=== PATIENT | male | born 1965 | race Two or more races ===

== ENCOUNTER 2022-05-07 10:04 | Emergency (ER) | payer MEDICAID, SELFPAY ==
[2022-05-07 10:07] VITALS: BP 118/81; PULSE 104; RESP 18; TEMP 36.6; O2SAT 96; BMI 33.4
--- NOTE | 2022-05-07 11:01 | MHC.RECOVRN ---
Spoke with Karrie Godwin RN, at [facility] in [facility], [place] location. Phone number [phone]. Pt last received 90 mg methadone on 05/06/22 at 0802. Form sent to pharmacy, provider aware. Pt reports he will be staying with his mother in [place] since he was evicted from his apartment in [place]. Discussed local OTPs, pt would like to be connected to [facility].
--- NOTE | 2022-05-07 11:39 | HE.PHANOTE ---
Methadone verification form received, confirmed 90 mg with [facility] meth[facility], last dose was 05/06/22
[2022-05-07] MEDS: methADONE HCl 20 MG/2 ML ORAL.CONC 90 MG PO (11:47)
--- NOTE | 2022-05-07 12:44 | MHC.RECOVRN ---
Pts referral sent to [facility]. Spoke with Kirstin Rice, health program analyst, regarding pt transfer from [facility]. T/w was informed pt would need [facility] prior to initiating care at [facility]. Suzette De La Rosa met with pt to begin [facility] application, Suzette hopeful pt will be active today. Suzette will call pt with updates when application is processed. If pt is active today, pt instructed to present to [facility] tomorrow morning between 7-10AM. If pt is not active, pt instructed to return to [facility] ED for dose tomorrow. Pt provided with OTP location and contact information. Denies questions or concerns. Discussed with ED provider.
--- NOTE | 2022-05-07 12:52 | ED_ITS ---
HPI - General Adult General Chief complaint: General Medical Stated complaint: Medication Refill? 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 He reports he does not have any access to methadone and he cannot go back to [place]. He reports he did get his last dose yesterday. He reports that he did use a bundle of heroin last night. He denies any other recent drug usage. He denies any SI/HI/auditory visualizations thoughts of self-injury or any other complaints or concerns at this time. MD complaint: Requesting methadone dosing Onset (ago): day(s) (Today) Related Data Allergies Allergy/AdvReac Type Severity Reaction Status Date / Time No Known Allergies Allergy Verified 05/07/22 10:21 Review of Systems Review of Systems: Constitutional : No Weight loss, No Fever, No Chills, No Night Sweats, No Fatigue, No Malaise ENT/Mouth : No Hearing loss, No Ear Pain, No Nasal Congestion, No Sinus Pain, No Hoarseness, No sore throat, No Rhinorrhea, No Swallowing Difficulty Eyes: No Eye Pain, No Swelling, No Redness, No Foreign Body, No Discharge, No Vision Changes Cardiovascular : No Chest Pain, No SOB, No Dyspnea on Exertion, No Orthopnea, No Edema, No Palpitations Respiratory : No Cough, No Sputum, No Wheezing, No Smoke Exposure, No Dyspnea Gastrointestinal : No Nausea, No Vomiting, No Diarrhea, No Constipation, No abdominal Pain, No Hematochezia, No Melena Genitourinary : no irregular bleeding, No Dysuria, No Urinary Frequency, No Hematuria, No Urinary Incontinence, No Urgency, No Flank Pain, No Urinary Flow Changes, No Hesitancy Musculoskeletal : No joint pain, No Myalgias, No Joint Swelling Skin : No Skin Lesions, No rash Neuro : No Weakness, No Numbness, No Paresthesias, No Loss of Consciousness, No Dizziness, No Headache Psych : No Anxiety/Panic, No Depression, No SI/HI/AH/VH, No Social Issues, Heme/Lymph: No Bruising, No Bleeding,No Lymphadenopathy Endocrine : No Polyuria, No Polydipsia, No Temperature Intolerance Yes all other systems are reviewed and are negative [facility] Past Medical History Attestation statement: The following information was validated with the patient. Source: old records reviewed and nursing notes reviewed Social History Social History Advance Directives: No Advance Directives Information Provided: Yes Physical Exam ED Vital Signs: Vital Signs - 24 hr 05/07/22 10:07 Temperature 98 F Pulse Rate 104 H Respiratory Rate 18 Blood Pressure 118/81 Pulse Oximetry 96 Oxygen Delivery Method Room Air BMI result Body Mass Index 33.4 vital signs have been reviewed as normal and appeared to be correct. Blood pressure normal. Heart rate normal. Respiration rate normal. Temperature normal. Oxygen saturation normal. Appearance: Alert. Oriented X3. No acute distress. Head: Normal external exam. Normocephalic. Atraumatic. Eyes: PERRLA. EOMI. Conjunctiva and sclera normal. Eyelids normal. ENT: Pharynx normal. Uvula midline. Moist mucous membranes. No lesions/ulcerations or masses noted on the tongue. Normal voice. No trismus noted. No drooling noted. No muffled voice noted. Neck: Normal inspection. Neck supple. FROM. No adenopathy. Thyroid Normal. No tracheal deviation noted. No crepitus is noted. No meningeal signs. No neck mass noted. No signs of trauma noted. CVS: Normal heart rate and rhythm. Heart sound normal. Pulses normal throughout. No murmurs/rales/gallops. Respiratory: No respiratory distress. Painless inspiration. Breath sounds normal. No wheezes/rales/rhonchi noted. Chest nontender. No crepitus is noted. No signs of trauma noted. No accessory muscle usage noted or decreased air movement noted. No signs of trauma. Abdomen: Soft and nontender. Bowel sounds normal in all 4 quadrants. No distention noted. No organomegaly noted. No visible injury noted. Back: No CVA tenderness. Full range of motion noted. Nontender. No signs of trauma. Patient neuro intact bilaterally and distally on all 4 extremities. Patient's reflexes intact bilaterally and distally on all 4 extremities. No rashes/lesion/induration/fluctuance or signs of infection noted. Skin: Skin warm and dry. Normal skin color. Normal skin turgor. No rashes/lesions/lacerations noted. Extremities: No lower extremity edema. No calf tenderness is noted. Extremities exhibit normal range of motion and nontender. Neuro: Oriented X 3. No motor deficit. No sensory deficit. Reflexes normal. Normal steady gait. No focal neuro deficits noted. CN's II-XII intact bilaterally? Vascular: + radial pulses/+ 2 distal pedal pulses/+2 dorsalis pedis b/l. Normal cap refill. No cyanosis noted to upper extremity nails and lower extremity toes nails. Course Course Course Narrative: Patient requesting his methadone dosing was last dose yesterday [place]. Kathy rosas from recovery team confirmed this. He does not actually have [employer] and he will be residing here with his mother will not be going back to [place] therefore financial advisors were consulted as well and are trying to help the patient establish health insurance [facility] while he is living here [place]. We gave him his 90 mg of methadone today. If he cannot make establish insurance he will have to come back here for his methadone dosing until he establishes his health insurance. After that patient can go to [facility] once he establishes [facility] per Kathy Rosas the refinery operator vapor recovery unit/RN. Therefore at this time patient given 90 mg of methadone and he will have to come back tomorrow for repeat dosing. I gave him a few numbers to establish a PCP as well. Medications Administered Discontinued Medications Generic Name Dose Route Start Last Admin Trade Name Freq PRN Reason Stop Dose Admin Methadone HCl 90 mg 05/07/22 11:24 05/07/22 11:47 Methadone Hcl 20 Mg/2 Ml Oral.Conc PO 05/07/22 11:25 90 mg ONCE ONE Administration Medical Decision Making Consult Healthcare Provider Management of the patient was discussed with: Mechanical Detailer (Kathy rosas refinery operator vapor recovery unit RN) Discharge Plan Discharge Clinical Impression: Methadone maintenance therapy patient Patient Disposition: Home, Self-Care Instructions: Methadone (By mouth) Additional Instructions: We confirmed your methadone dose that you receive yesterday in [place] by your methadone clinic. We gave you 90 mg of p.o. methadone today. We are trying to help you establish a new clinic for your methadone dosing. Although it appears that you do not have insurance at this time and the financial officers are help you with this. If you do not get [facility] by tomorrow you can come here tomorrow to the emergency department around 11:00 to have your repeat 90 mg methadone dose. Bring this discharge paperwork with you so they know that you only need her methadone dose tomorrow. Return if any new or worsening symptoms. Referrals: [facility] [Provider Group] [facility] [Provider Group] [facility] [Provider Group] [facility] [Provider Group]
== END 2022-05-07 13:04 | disposition home or self-care (01) ==
PROVIDERS: Emergency Provider Student in an Organized Health Care Education/Training Program
DX: F11.20 Opioid dependence, uncomplicated (principal)
CPT/HCPCS: 99282; 99283

== ENCOUNTER 2023-10-25 15:21 | Emergency (ER) | payer MEDICAID, SELFPAY ==
[2023-10-25 15:42] VITALS: BP 126/83; PULSE 108; RESP 16; TEMP 36.6; O2SAT 95; BMI 32.7
--- NOTE | 2023-10-25 15:42 | ED.GENADULT ---
HPI - General Adult General Chief complaint: General Medical Stated complaint: med refill Time Seen by Provider: 10/25/23 18:43 Source: patient, RN notes reviewed and old records reviewed Mode of arrival: ambulatory Limitations: no limitations History of Present Illness ED Provider: Helen SUAREZ narrative: 57-year-old male presents for evaluation of ?medication refill. ? Patient has a history of depression. He reports he recently moved to this area from [place]. He reports that he is prescribed gabapentin 300 mg b.i.d. and Prozac 20 mg daily. He states that his last doses were 3 days ago. He reports that he is already begun trying to get in contact the primary doctor as well as psychiatric providers in the area but does not yet have them He has no complaints at this time and is just seeking medication refill Related Data Previous Rx's ?Medication ?Instructions ?Recorded fluoxetine 20 mg capsule (Prozac) 20 mg PO DAILY #30 caps 10/25/23 gabapentin 300 mg capsule 300 mg PO BID #60 caps 10/25/23 Allergies Allergy/AdvReac Type Severity Reaction Status Date / Time No Known Allergies Allergy Verified 10/25/23 15:47 Review of Systems Constitutional: Constitutional: Denies body ache(s), Denies chills and Denies headache(s) Eyes: Eyes: Denies blurry vision ENT: Denies vertigo and Denies headache(s) Cardiovascular: Cardiovascular: Denies chest pain and Denies dyspnea Respiratory: Respiratory: Denies cough and Denies dyspnea Gastrointestinal: Gastrointestinal: Denies abdominal pain, Denies nausea and Denies vomiting Musculoskeletal: Musculoskeletal: Denies back pain Integumentary/Breasts: Skin/Breast: Denies rash Neurologic: Denies vertigo and Denies headache(s) Psychiatric: Psychiatric: Denies anxiety, Denies depression and Denies suicidal ideation REPLACED BY [facility] Social History Social History Advance Directives: No Advance Directives Information Provided: No Do you have a plan to hurt others: No Plan Physical Exam ED Vital Signs: Vital Signs - 24 hr 10/25/23 15:42 10/25/23 17:44 Temperature 97.8 F 97.9 F Pulse Rate 108 H 79 Respiratory Rate 16 18 Blood Pressure 126/83 115/74 Pulse Oximetry 95 94 Oxygen Delivery Method Room Air Room Air BMI result Body Mass Index 32.7 Const General: healthy appearing, comfortable, no acute distress, alert and awake Nutritional Appearance: well nourished Orientation/consciousness: patient oriented x3 HENMT Head: Yes normocephalic and Yes atraumatic Eyes Eyelids: Yes eyelids normal Conjunctivae: conjunctivae normal Sclerae: sclerae normal Corneas: corneas normal Pupils: Equal, round and reactive pupils present EOM: EOMs intact bilaterally Neck Neck: Yes full ROM Resp Effort & Inspection: normal respiratory effort, able to speak in complete sentences and not labored Skin General skin exam: elasticity normal Neuro General: patient oriented x3 Cranial nerves: Yes Equal, round and reactive pupils present and Yes Bilaterally intact EOM present Cognition (Neuro): normal cognition Extrem Other: Moving all extremities well without any obvious deformities Course Course Course Narrative: This is a Rapid Medical Examination (RME) performed by Heidi Lovett PA-C in triage. Full HPI, ROS, assessment and treatment plan per primary provider in the Main ED. 57 yo male with history of depression on prozac and gabapentin who presents to the ER for evaluation of depression, anxiety after running out of his medications. He was on a 3rd medication but cannot remember the name of it. No SI or HI. He is from [facility] and just moved here. He does not have a psychiatrist here to prescribe for him. Plan: verify medications, CARE team to help provider resources?? Medical Decision Making Medical Decision Making [facility] Narrative: 57-year-old male presents for evaluation medication refill, he is well-appearing. He is answering questions appropriately he is not depressed or suicidal, vital signs are within normal limits. He has no somatic complaints. I do not see any indication for emergent workup at this time. I will prescribe the patient 1 month of his medications until he may follow-up with outpatient providers Differential Diagnosis Differential Diagnoses: The differential diagnosis associated with the presentation includes Medication refill Depression Bipolar disorder Neuropathy Discharge Plan Discharge Clinical Impression: Medication refill, Depression Patient Disposition: Home, Self-Care Instructions: Medicine Refill (ED) Additional Instructions: Take your medications as prescribed. Follow-up with your outpatient providers as planned Return for new or worsening symptoms Prescriptions: New fluoxetine [Prozac] 20 mg capsule 20 mg PO DAILY Qty: 30 0RF gabapentin 300 mg capsule 300 mg PO BID Qty: 60 0RF Print Language: Grenadian
[2023-10-25 17:44] VITALS: BP 115/74; PULSE 79; RESP 18; TEMP 36.6; O2SAT 94
--- NOTE | 2023-10-25 18:57 | PC.NURSE ---
Provider to bedside for primary eval, cleared for dc home.
[2023-10-25 19:06] VITALS: BP 00/00; PULSE 0; RESP 0; TEMP -17.7; TEMP 0; O2SAT 0
== END 2023-10-25 19:07 | disposition home or self-care (01) ==
PROVIDERS: Emergency Provider Emergency Medicine
DX: F33.1 Major depressive disorder, recurrent, moderate (principal); Z76.0 Encounter for issue of repeat prescription
CPT/HCPCS: 99282; 99283

== ENCOUNTER 2024-03-07 16:28 | Outpatient (REF) | payer MEDICAID, SELFPAY ==
[2024-03-08 01:59] LABS: CT PCR NOT DETECTED (Not Detect.); NG PCR NOT DETECTED (Not Detect.)
== END 2024-03-07 16:29 | disposition home or self-care (01) ==
LOC: HO.HHCLNP 16:28
PROVIDERS: Visit Provider Nurse Practitioner Family
DX: Z00.00 Encounter for general adult medical examination without abnormal findings (principal)
CPT/HCPCS: 87491; 87591

== ENCOUNTER 2024-06-06 11:43 | Outpatient (REF) | payer MEDICAID, SELFPAY ==
[2024-06-06 13:39] LABS: MANUAL DIFF FLAG NO
[2024-06-06 13:48] LABS: Basophils Percent Auto 0.4 % (0-2); Eosinophils Percent Auto 0.1 % (0-4); Hematocrit 51.4 % (42.0-52.0); Hemoglobin 17.2 g/dl (14.0-18.0); Imm Gran Abs Auto 0.05 X10*3/uL (0.00-0.03); Imm Gran Pct Auto 0.6 % (0.0-0.4); Lymphocytes Absolute Auto 1.5 X10*3/uL (1.2-4.9); Lymphocytes Percent Auto 19.4 % (20-40); Mean Corpuscular HGB Conc 33.5 g/dl (31.0-36.0); Mean Corpuscular Hemoglobin 29.4 pg (27.0-33.0); Mean Corpuscular Volume 87.7 fL (80.0-98.0); Mean Platelet Volume 11.5 fL (9.4-12.4); Monocytes Absolute Auto 0.5 X10*3/uL (0.1-1.2); Monocytes Percent Auto 6.6 % (2-11); Neutrophils Absolute Auto 5.7 x10*3/uL (2.0-8.3); Neutrophils Percent Auto 72.9 % (45-73); Platelet Count 183 X10*3/uL (160-400); Red Blood Count 5.86 X10*6/uL (4.60-5.80); Red Cell Distribution Width 13.5 % (11.0-16.0); White Blood Count 7.9 X10*3/uL (4.8-10.8)
[2024-06-06 13:54] LABS: Estimated Average Glucose 128 mg/dL; Hemoglobin A1C 189.7289 umol/L; Hemoglobin A1c % 6.1 % (<6.0)
[2024-06-06 14:17] LABS: PSA,Total (Free>4and<10) 0.85 ng/mL (0.00-4.00)
[2024-06-06 14:39] LABS: Alanine Aminotransferase 31 U/L (0-40); Albumin Level 4.6 g/dL (3.5-5.0); Alkaline Phosphatase 81 U/L (39-117); Anion Gap 14 (12-20); Aspartate Amino Transferase 31 U/L (5-37); Bilirubin Total 0.4 mg/dL (0.0-1.0); Blood Urea Nitrogen 20 mg/dL (9-16); Calcium 9.6 mg/dL (8.4-10.2); Carbon Dioxide 23 mmol/L (22-29); Chloride 107 mmol/L (96-108); Cholesterol 161 mg/dL (<200); Estimated Glomerular Filt Rate > 60; Glucose Random 94 mg/dL (60-115); HDL Cholesterol 34 mg/dL (>40); LDL Cholesterol Calculated 107 mg/dL (<100); Sodium 140 mmol/L (135-145); Total Protein 8.3 g/dL (6.5-8.0); Triglycerides 104 mg/dL (<150)
--- OUTSIDE RECORDS SUMMARY | 2024-06-06 14:45 | XMS_ITS | Encounter Summary ---
Author Organization [employer] Address [address] [place] [address] Care Team Providers Care Web Marketing Manager Name Role Phone Naya Allred GOVERNMENT AFFAIRS FELLOW Primary Care Provider [phone] Reason for Visit * Reason Comments Med Refill Encounter Details Date Type Department Care Team ([facility] st Contact Info) Description 06/03/2024 Refill [facility] [address] [place] [address] Naya Allred FNP [address] [place] [address] Moderate major depression (CMS/HCC) Social History Tobacco Use Types Packs/Day Years Used Date Smoking Tobacco: Former Cigarettes Smokeless Tobacco: Never Comments:Smoked over 30 year s quit 4 months ago Alcohol Use Standard Drinks/Week Comments Never 0 (1 standard drink = 0.6 oz pur e alcohol) Depression Answer Date Recorded Patient Health Questionnaire-9 Score 14 03/07/2024 Patient Health Questionnaire-9 Score 14 03/07/2024 Last PHQ-9: Questionnaire Data Not on file 1 05/07/2023 Housing Stability Answer Date Recorded What is your housing situation today? I have ector goodwin 01/30/[address] you li ve. Do you have problems with any of the following? None of the above 01/30/2024 Food Insecurity Answer Date Recorded Within the past 12 months, y ou worried that your food would run out before you got money to buy more: Never True 01/30/2024 Within the past 12 months,th e food you bought just didn't last and you didn't have enough money to get more: Never True Transportation Answer Date Recorded In the past 12 months, has l ack of transportation kept you from medical appts, meetings, work or from getting things needed for daily living? No 01/30/2024 Utilities Answer Date Recorded In the past 12 months, has t he electric, gas, oil or water company threatened to shut off services in your home? No 01/30/2024 Depression Answer Date Recorded Patient Health Questionnaire-2 Score 5 03/07/2024 Internet Access Answer Date Recorded Internet Access Q1 Yes 01/30/2024 Internet Access Q2 Not on file 01/30/2024 Sex and Gender Information Value Date Recorded Sex Assigned at Male 10/28/2023 9:28 AM EDT Legal Sex Male 3:14 PM EDT Gender Identity Male 10/28/2023 9:28 AM EDT Sexual Orientation Straight 10/28/2023 9: 28 AM EDT documented as of this encounter Plan of Treatment Not on file documented as of this encounter Visit Diagnoses Diagnosis Moderate major depression (CMS/HCC) Major depressive disorder, single episode, moderate documented in this encounter Additional Health Concerns Assessment Noted Time PHQ-9 Depression Total Score: 14 024 3:47 PM EST documented as of this encounter Care Teams Web Marketing Manager Relationship Specialty Start Date End Date Naya Allred FNP [address] [place] [phone] PCP - General Family Medicine 03/07/24 documented as of this encounter
--- OUTSIDE RECORDS SUMMARY | 2024-06-06 14:45 | XMS_ITS | Encounter Summary ---
Author Organization [employer] Address [address] [place] [address] Care Team Providers Care Repairer Hairspring Name Role Phone Chalino Naya RESEARCH MANUFACTURING OPERATOR Primary Care Provider Encounter Details Date Type Department Care Team (Late st Contact Info) Description 06/06/2024 10:00 AM EST Office Visit [facility] [address] [place] [address] Naya Allred FNP [address] [place] [address] Moderate major depression (CMS/HCC) (Primary Dx); Healthcare maintenance; Dietary counseling; Exercise counseling; Elevated blood pressure reading in office without diagnosis of hypertension; Frequent noctunal urination; Class 2 obesity due to excess calories with body mass index (BMI) of 36.0 to 36.9 in adult, unspecified whether serious comorbidity present; Anxiety Social History Tobacco Use Types Packs/Day Years [...] AM EDT documented as of this encounter Last Filed Vital Signs Vital Sign Reading Time Taken Comments Blood Pressure 135/96 06/06/2024 9:45 AM EST Pulse 116 06/06/2024 9:45 AM EST Temperature 36.2 ??C (97.1 ??F) 06/06/2024 9:45 AM ES T Respiratory Rate 22 06/06/2024 9:45 AM EST Oxygen Saturation 97% 06/06/2024 9:45 AM EST Inhaled Oxygen Concentration - - Weight 108 kg (239 lb) 06/06/2024 9:45 AM EST Height 172.7 cm (5' 8 ) 06/06/2024 9:45 AM EST Body Mass Index 36.34 06/06/2024 9:45 AM EST documented in this encounter Plan of Treatment Not on file documented as of this encounter Procedures Procedure Name Priority Date/Time Associated Diagnosis Comments PSA, TOTAL WITH REFLEX TO PSA, FREE Routine 06/06/2024 11:45 AM EST Healthcare maintenance HEMOGLOBIN A1C Routine 06/06/2024 11:45 AM EST Healthcare maintenance COMPREHENSIVE METABOLIC PANEL Routine 06/06/2024 11:45 AM EST Healthcare maintenance documented in this encounter Results * (ABNORMAL) Hemoglobin A1c (06/06/2024 11:45 AM EST) Hemoglobin A1c 6.1(H) <6.0 % [facility] Comment:Hemoglobin A1C Refer ence Range Adults: 4.8 - 6.0 % Non diabetic: < 6.0 % Goal: < 7.0 %Additional Action Suggested: > 8.0 %Note: Hemoglobin A1c results are invalid for patients with abnormal amounts of HbF. Blood transfusions may impact the HbA1c concentration in the patient sample. Estimated Average Glucose 128 mg/dL [facility] Comment:eAG = Estimated ave rage glucose which is %A1C expressed asaverage glucose, using the formula of the [id number] Glucose study (ADAG), Diabetes Care, Vol.31,#8,Nov. 2007 Blood Venous blood specimen / Unknown 06/06/2024 11:45 AM EST 06/06/2024 1:34 PM EST us Naya Allred RESEARCH MANUFACTURING OPERATOR LAB BLOOD ORDERABLES Final Res ult [facility] [address] [place] [phone] * (ABNORMAL) Comprehensive Metabolic Panel (06/06/2024 11:45 AM EST) Sodium 140 135 - 145 mmol/L [facility] Potassium 4.0 3.3 - 5.1 mmol/L [facility] Chloride 107 96 - 108 mmol/L [facility] Carbon Dioxide 23 22 - 29 mmol/L [facility] Anion Gap 14 12 - 20 [facility] Urea Nitrogen (BUN) 20(H) 9 - 16 mg/dL [facility] Creatinine, Serum 0.87 0.5 - 1.4 mg/dL [facility] Estimated Glomerular Filt Rate >60 [facility] Comment:Chronic Kidney Disea se: Estimated GFR < 60 mL/min/[id number] Kidney Disease: Estimated GFR < 15 mL/min/1.73m2 Glucose 94 60 - 115 mg/dL [facility] Calcium 9.6 8.4 - 10.2 mg/dL [facility] Bilirubin, Total 0.4 0.0 - 1.0 mg/dL [facility] Aspartate Amino Transferase 31 5 - 37 U/L [facility] Alanine Aminotransferase 31 0 - 40 U/L [facility] Total Protein 8.3(H) 6.5 - 8.0 g/dL [facility] Albumin Level 4.6 3.5 - 5.0 g/dL [facility] Alkaline Phosphatase 81 39 - 117 U/L [facility] Blood Venous blood specimen / Unknown 06/06/2024 11:45 AM EST 06/06/2024 1:34 PM EST Naya GAMINGP LAB BLOOD ORDERABLES Final Res ult Performing Organization Address City/State/[facility] Co de Phone Number [facility] [address] [place] [phone] * PSA, Total With Reflex to PSA, Free (06/06/2024 11:45 AM EST) PSA,Total (Free>4and<10) 0.85 0.00 - 4.00 ng/mL [facility] Comment:A Free PSA was not p erformed: The percentage of Free PSA can be used to enhance the differentiation of prostate cancer from benign prostatic disease in subjects whose PSA levels are between 4.0 and 10.0 ng/mL. For subjects whose PSA levels are below 4.0 or above 10.0 ng/mL, the risk of prostate cancer is determined on the basis of the PSA alone. Therefore the % Free PSA is recommended only for those subjects whose PSA levels are between 4.0 and 10.0 ng/mL.PSA methodology: Landin Alinity i ChemiluminescentMicroparticle Immunoassay (CMIA) 06/06/2024 11:4 5 AM EST 06/06/2024 1:34 PM EST us Naya NO LAB BLOOD ORDERABLES Final Res ult [facility] [address] [place] [phone] documented in this encounter Visit Diagnoses Diagnosis Moderate major depression (CMS/HCC)- Primary Major depressive disorder, single episode, moderate Healthcare maintenance Dietary counseling Dietary surveillance and counseling Exercise counseling Elevated blood pressure reading in office without diagnosis of hypertension Frequent noctunal urination Class 2 obesity due to excess calories with body mass index (BMI) of 36.0 to 36.9 in adult, unspecified whether serious comorbidity present Anxiety Anxiety state, unspecified documented in this encounter Additional Health Concerns Assessment Noted Time PHQ-9 Depression Total Score: 14 024 3:47 PM EST documented as of this encounter Care Teams Repairer Hairspring Relationship Specialty Start Date End Date Naya Allred FNP [address] [place] [phone] PCP - General Family Medicine 03/07/24 documented as of this encounter
--- OUTSIDE RECORDS SUMMARY | 2024-06-06 14:45 | XMS_ITS | Encounter Summary ---
Author Organization [employer] Address [address] [facility] [address] [place] [address] Care Team Providers Care Teacher Of The Sight Impaired Name Role Phone Naya Allred ENAMEL FINISHER Primary Care Provider [phone] Encounter Details Date Type Department Care Team (Latest Contact Info) Description 06/06/2024 Travel Social History Tobacco Use Types Packs/Day Years [...] documented as of this encounter Visit Diagnoses Not on filedocumented in this encounter Additional Health Concerns Assessment Noted Time PHQ-9 Depression Total Score: 14 024 3:47 PM EST documented as of this encounter Care Teams Teacher Of The Sight Impaired Relationship Specialty Start Date End Date Naya Allred FNP [address] [place] [phone] PCP - General Family Medicine 03/07/24 documented as of this encounter
--- OUTSIDE RECORDS SUMMARY | 2024-06-06 14:45 | XMS_ITS | Clinical Summary ---
Author Organization [employer] Address [address] [facility] 7t [place] [address] Care Team Providers Care Carton Lettering Machine Operator Name Role Phone Naya Allred DIRECTOR OF FOOD AND NUTRITION Primary Care Provider [phone] Allergies No known active allergies Medications * This document contains information received from the source organization and may not represent a complete record from that organization. Multiple Vitamin (multivitamin) tabletIndicati ons:Moderate major depression (CMS/HCC) Take 1 tablet by mouth Once per day. 90 tablet 3 03/07/20 24 Active FLUoxetine (PROzac) 20 MG capsuleIndicat ions:Moderate major depression (CMS/HCC) TAKE 2 CAPSULES BY MOUTH ONCE PER DAY. (DOSE INCREASED) 60 capsule 2 06/05/19 25 Active acetaminophen (Tylenol Extra Strength) 500 MG tablet Take 1000 mg as needed for mild to moderate pain as needed every 8 hrs 30 tablet 06/06/19 25 Active gabapentin (Neurontin) 300 MG capsuleIndicat ions:Moderate major depression (CMS/HCC) Take 1 capsule (300 mg) by mouth in the morning for 90 doses. 90 capsule 06/06/19 25 025 Active Blood Pressure kit 1 Units 2 times daily. 1 kit 06/06/19 25 Active FLUoxetine (PROzac) 20 MG capsuleIndicat ions:Moderate major depression (CMS/HCC) Take 2 capsules (40 mg) by mouth Once per day. (Dose increased) 60 capsule 2 03/07/20 24 025 Discontinued gabapentin (Neurontin) 300 MG capsuleIndicat ions:Moderate major depression (CMS/HCC) Take 1 capsule (300 mg) by mouth in the morning. 30 capsule 03/15/20 24 025 Discontinued(Re order (will not trigger notification to Pharmacy)) Active Problems Problem Noted Date Diagnosed Date Elevated blood pressure read ing in office without diagnosis of hypertension 06/06/2024 Frequent noctunal urination 06/06/2024 Class 2 obesity due to exces s calories with body mass index (BMI) of 36.0 to 36.9 in adult 06/06/2024 Anxiety 06/06/2024 Moderate major depression 03/10/2024 Assessment & Plan (03/10/2024 1:11 PM EST): Patient recently moved from [place], reports Hx of psychiatric hospitalization and SI in 2009 and 2011 in [place] followed at [facility] outpatient clinic in [facility]. PCP Dr. La in [facility]. History of heroin dependence, clean for 3 years doing well denies cravings or relapse. Not on any MAT at this time. Denies SI but reports he is not doing well, wants his meds refill and get JAMES under and psych therapy. Seen at this visit by and psych visit in the coming week Plan Immediate consult with and referral to Psychiatrist Meds refill Adult wellness visit 03/10/2024 Assessment & Plan (03/10/2024 1:27 PM EST): 57 y.o. male presents to office for transfer visit to establish care. Alert and oriented, appears worried and anxious, obese, good historian able to communicate needs. Recently moved from [place], [place] to [place]. Past medical hx hep C, drug dependence, RADHA, & depressive disorder. Hx of psychiatric hospitalization and SI in 2009 and 2011. Current concerns at this visit Medication refill and getting back under the care and psychiatrist. ROS and Physical remarkable for anxiety and depression. Plan Immediate referral to be seen by 03/07/2024 and psychiatrist in the following week. All appropriate labs and referrals ordered. Follow up 3 months or PRN before then Dietary counseling 03/10/2024 Assessment & Plan (03/10/2024 12:08 PM EST): Patient reports eat healthy including daily fruits and vegetables. Does not drink soda Plan Eat 3 meals a day, especially breakfast Eat healthy and focus on healthyfood choices daily fruits, vegetables, grains, low fat milk, low carbohydrate and fat Maintain healthy weight. Eat with family Healthcare maintenance 03/10/2024 Assessment & Plan (03/10/2024 12:11 PM EST): Reports going to gym regularly Plan Be physically active at least 45 minutes a day RADHA (generalized anxiety disorder) 03/07/2024 H/O drug dependence/abuse 03/07/2024 Encounters * This document contains information received from the source organization and may not represent a complete record from that organization. Date Type Department Care Team Description 06/06/2024 10:00 AM EST Office Visit [facility] [address] [place] [phone] Naya Allred FNP Moderate major depression (CMS/HCC) (Primary Dx); Healthcare maintenance; Dietary counseling; Exercise counseling; Elevated blood pressure reading in office without diagnosis of hypertension; Frequent noctunal urination; Class 2 obesity due to excess calories with body mass index (BMI) of 36.0 to 36.9 in adult, unspecified whether serious comorbidity present; Anxiety 06/06/2024 Travel 06/03/2024 Refill [facility] [address] [place] [address] Naya Allred FNP Moderate major depression (CMS/HCC) 03/20/2024 Patient Outreach [facility] [address] [place] [address] [facility] 03/07/2024 2:45 PM EST Office Visit [address] [phone] Naya Allred FNP Adult wellness visit (Primary Dx); Moderate major depression (CMS/HCC); Dietary counseling; Exercise counseling from Last 3 Months Immunizations Name Administration Dates Next Due Influenza, seasonal, injectable, preservative fr ee 01/12/2024 Zoster, Recombinant 12/21/2023 Family History Medical History Relation Name Comments Diabetes Father Diabetes Mother Relation Name Status Comments Father Mother Social History Tobacco Use Types Packs/Day Years [...] Orientation Straight 10/28/2023 9: 28 AM EDT Last Filed Vital Signs Vital Sign Reading [...] Mass Index 36.34 06/06/2024 9:45 AM EST Plan of Treatment Health Maintenance Due Date Last Done Comments CT Colonography 1967 Colonoscopy 1967 Colorectal Cancer Screening 1967 FIT DNA/Cologuard 1967 FIT 1967 FOBT 1967 HIV Screening 1967 Lipid Panel 1967 06/06/2024 Sigmoidoscopy 1967 Hepatitis C Screening 11/18/1985 Hepatitis B Vaccines (1 of 3 - 19+ 3-dose series) 11/18/1986 Pneumococcal Vaccine: 50+ Years (1 of 1 - PCV) 11/18/2017 Depression Monitoring (PHQ-9) 09/04/2024, 03/07/2024 SDOH Screening 01/29/2025 01/30/2024 Depression Screening 03/07/2025 03/07/2024, 03/07/2024 Alcohol/Substance Use Screening 06/06/2025 06/06/2024 Diabetes: Hemoglobin A1C 06/06/2025 06/06/2024 Tobacco Screening 06/06/2025 06/06/2024 DTaP/Tdap/Td Vaccines (2 - T d or Tdap) 04/23/2034 04/23/2024 RSV Patients and Patients Aged 60 years or older (1 - 1-dose 75+ series) 11/18/2042 COVID-19 Vaccine Completed 01/12/2024 Influenza Vaccine Completed 01/12/2024 Zoster Vaccines Completed 04/23/2024, 12/21/2023 HIB Vaccines Aged Out No longer eligi ble based on patient's age to complete this topic HPV Vaccines Aged Out No longer eligi ble based on patient's age to complete this topic Hepatitis A Vaccines Aged Out No long er eligible based on patient's age to complete this topic IPV Vaccines Aged Out No longer eligi ble based on patient's age to complete this topic Meningococcal Vaccine Aged Out No osmin makayla eligible based on patient's age to complete this topic RSV under 20 months Aged Out No longe r eligible based on patient's age to complete this topic Rotavirus Vaccines Aged Out No longer eligible based on patient's age to complete this topic Procedures Procedure Name Priority Date/Time Associated Diagnosis Comments HEMOGLOBIN A1C Routine 06/06/2024 11:45 AM EST Healthcare maintenance COMPREHENSIVE METABOLIC PANEL Routine 06/06/2024 11:45 AM EST Healthcare maintenance PSA, TOTAL WITH REFLEX TO PSA, FREE Routine 06/06/2024 11:45 AM EST Healthcare maintenance LIPID PANEL, STANDARD Routine 06/06/2024 11:45 AM EST Adult wellness visit CBC WITH AUTO DIFFERENTIAL Routine 06/06/2024 11:45 AM EST Adult wellness visit CHLAMYDIA/N. GONORRHOEAE RNA, TMA, UROGENITAL Routine 03/07/2024 3:30 PM EST Adult wellness visit from Last 3 Months Results * PSA, Total With Reflex to PSA, Free (06/06/2024 11:45 AM EST) PSA,Total (Free>4and<10) 0.85 0.00 - 4.00 ng/mL [facility] Comment:A Free PSA was not p [...] 06/06/2024 1:34 PM EST us Naya Allred [facility] LAB BLOOD ORDERABLES Final Res ult [facility] [address] [place] [phone] * (ABNORMAL) CBC auto differential (06/06/2024 11:45 AM EST) White Blood Count 7.9 4.8 - 10.8 X10*3/uL [facility] Red Blood Count 5.86(H) 4.60 - 5.80 X10*6/uL [facility] Hemoglobin 17.2 14.0 - 18.0 g/dl [facility] Hematocrit 51.4 42.0 - 52.0 % [facility] Mean Corpuscular Volume 87.7 80.0 - 98.0 fL [facility] Mean Corpuscular Hemoglobin 29.4 27.0 - 33.0 pg [facility] Mean Corpuscular HGB Conc 33.5 31.0 - 36.0 g/dl [facility] Red Cell Distribution Width 13.5 11.0 - 16.0 % [facility] Platelet Count 183 160 - 400 X10*3/uL [facility] Mean Platelet Volume 11.5 9.4 - 12.4 fL [facility] Neutrophils Percent Auto 72.9 45 - 73 % [facility] Imm Gran Pct Auto 0.6(H) 0.0 - 0.4 % [facility] Lymphocytes Percent Auto 19.4(L) 20 - 40 % [facility] Monocytes Percent Auto 6.6 2 - 11 % [facility] Eosinophils Percent Auto 0.1 0 - 4 % [facility] Basophils Percent Auto 0.4 0 - 2 % [facility] NRBC Pct Auto 0.0 0.0 - 0.2 /100WBC [facility] Neutrophils Absolute Auto 5.7 2.0 - 8.3 x10*3/uL [facility] Imm Gran Abs Auto 0.05(H) 0.00 - 0.03 X10*3/uL [facility] Lymphocytes Absolute Auto 1.5 1.2 - 4.9 X10*3/uL [facility] Monocytes Absolute Auto 0.5 0.1 - 1.2 X10*3/uL [facility] Eosinophils Absolute Auto 0.0 0.0 - 0.4 X10*3/uL [facility] Basophils Absolute Auto 0.0 0.0 - 0.2 X10*3/uL [facility] NRBC Abs Auto 0.000 0.0 - 0.012 X10*3/uL [facility] Blood Venous blood specimen / Unknown 06/06/2024 11:45 AM EST 06/06/2024 1:34 PM EST [facility] LAB BLOOD ORDERABLES Final Res ult Performing Organization Address City/[facility] [facility]/ZIP Co de Phone Number [facility] [address] [place] [phone] * (ABNORMAL) Hemoglobin A1c (06/06/2024 11:45 AM EST) Hemoglobin A1c 6.1(H) <6.0 % [facility] Comment:Hemoglobin A1C Refer ence Range Adults: 4.8 - 6.0 % Non diabetic: < 6.0 % Goal: < 7.0 %Additional Action Suggested: > 8.0 %Note: Hemoglobin A1c results are invalid for patients with abnormal amounts of HbF. Blood transfusions may impact the HbA1c concentration in the patient sample. Estimated Average Glucose 128 mg/dL [facility] Comment:eAG = Estimated ave rage glucose which is %A1C expressed asaverage glucose, using the formula of the [id number] Glucose study (ADAG), Diabetes Care, Vol.31,#8,Nov. 2007 Blood Venous blood specimen / Unknown 06/06/2024 11:45 AM EST 06/06/2024 1:34 PM EST [employer] [facility] LAB BLOOD ORDERABLES Final Res ult Performing Organization Address City/[facility]/ZIP Co de Phone Number [facility] [address] [place] [phone] * (ABNORMAL) Lipid Panel, Standard (06/06/2024 11:45 AM EST) Triglycerides 104 <150 mg/dL [facility] Comment:Desirable Triglyceri de: less than 150 mg/dLBorderline High Triglyceride 150-199 mg/dLHigh Triglyceride: 200-499 mg/dLVery High Triglyceride: greater than or equal to 5OO mg/dL Cholesterol 161 <200 mg/dL [facility] Comment:Desirable Cholestero l: less than 200 mg/dLBorderline High Cholesterol: 200-239 mg/dLHigh Cholesterol: greater than 239 mg/dL LDL Cholesterol Calculated 107(H) <100 mg/dL [facility] Comment:Desirable LDL: less than 100 mg/dLNear Optimal/Above Optimal LDL: 110- 129 mg/dLBorderline High LDL: 130-159 mg/dLHigh LDL: 160-189 mg/dLVery High LDL: greater than or equal to 190 mg/dL HDL Cholesterol 34(L) >40 mg/dL [facility] Comment:Desirable HDL: great er than 40 mg/dL Note: This HDL assay may give artificially low results in patients with liver disease. Blood Venous blood specimen / Unknown 06/06/2024 11:45 AM EST 06/06/2024 1:34 PM EST us Naya Allred DIRECTOR OF FOOD AND NUTRITION LAB BLOOD ORDERABLES Final Res ult [facility] [address] [place] [phone] * (ABNORMAL) Comprehensive Metabolic Panel (06/06/2024 11:45 AM EST) Sodium 140 135 - 145 mmol/L [facility] Potassium 4.0 3.3 - 5.1 mmol/L [facility] Chloride 107 96 - 108 mmol/L [facility] Carbon Dioxide 23 22 - 29 mmol/L [facility] Anion Gap 14 12 - 20 [facility] Urea Nitrogen (BUN) 20(H) 9 - 16 mg/dL [facility] Creatinine, Serum 0.87 0.5 - 1.4 mg/dL [facility] Estimated Glomerular Filt Rate >60 [facility] Comment:Chronic Kidney Disea se: Estimated GFR < 60 mL/min/1.75n4Gpmiyx Kidney Disease: Estimated GFR < 15 mL/min/1.73m2 Glucose 94 60 - 115 mg/dL [facility] Calcium 9.6 8.4 - 10.2 mg/dL [facility] Bilirubin, Total 0.4 0.0 - 1.0 mg/dL [facility] Aspartate Amino Transferase 31 5 - 37 U/L [facility] Alanine Aminotransferase 31 0 - 40 U/L [facility] Total Protein 8.3(H) 6.5 - 8.0 g/dL [facility] Albumin Level 4.6 3.5 - 5.0 g/dL [facility] Alkaline Phosphatase 81 39 - 117 U/L [facility] Blood Venous blood specimen / Unknown 06/06/2024 11:45 AM EST 06/06/2024 1:34 PM EST us Naya Allred [facility] LAB BLOOD ORDERABLES Final Res ult [facility] [address] [place] [phone] * Chlamydia/N. Gonorrhoeae RNA, TMA, Urogenitial (03/07/2024 3:30 PM EST) CT PCR NOT DETECTED Not Detect. [facility] Comment:A not detected test result does not exclude the possibilityof infection because test results can be affected byimproper specimen collection, concurrent antibiotic therapy,or the number of organisms in the specimen which may bebelow the sensitivity of the test. As with many diagnostictests, results from the Xpert CT/NG assay should beinterpreted in conjunction with other laboratory andclinical data available to the clinician.Xpert CT/NG performance has not been evaluated in patientsless than 14 years of age. The assay should not be used forthe evaluationof suspected sexual abuse or for other medico-legalindications. Additional testing is recommended in anycircumstance when false positive or false negative resultscould lead to adverse medical, social or psychologicalconsequences. NG PCR NOT DETECTED Not Detect. [facility] Comment:A not detected test result does not exclude the possibilityof infection because test results can be affected byimproper specimen collection, concurrent antibiotic therapy,or the number of organisms in the specimen which may bebelow the sensitivity of the test. As with many diagnostictests, results from the Xpert CT/NG assay should beinterpreted in conjunction with other laboratory andclinical data available to the clinician.Xpert CT/NG performance has not been evaluated in patientsless than 14 years of age. The assay should not be used forthe evaluationof suspected sexual abuse or for other medico-legalindications. Additional testing is recommended in anycircumstance when false positive or false negative resultscould lead to adverse medical, social or psychologicalconsequences. Urine (Urine, Random) 03/07/2024 3:30 PM EST 03/07/2024 4:29 PM EST Narrative [facility] - 03/08/2024 2:00 AM EST Urine Naya NO LAB MICROBIOLOGY - GENERAL ORD ERABLES Final Result Performing Organization Address City/State/[facility] Co de Phone Number [facility] [address] [place] [phone] from Last 3 Months Insurance [facility] C3 Care Teams Carton Lettering Machine Operator Relationship Specialty Start Date End Date Naya Allred FNP [address] [place] [phone] PCP - General Family Medicine 03/07/24
[2024-06-07 08:30] LABS: HBS Num1 16.75 mIU/mL (0-7.99); HBc Num1 0.08 S/CO (0.00-0.79); HIV AB/AG Nonreactive (Nonreactive); HIV Num 1 0.06 S/CO (0.00-0.99); Hepatitis B Core Antibody Nonreactive (Nonreactive); Hepatitis B Surface Antigen Negative (Negative); ~Hepatitis B Surface Antibody REACTIVE (Nonreactive)
[2024-06-07 20:13] LABS: HCV Log PCR <1.18 NOT DETECTED Log IU/mL (NOT DETECTED); HepC Viral Load <15 NOT DETECTED IU/mL (NOT DETECTED)
== END 2024-06-06 11:44 | disposition home or self-care (01) ==
LOC: HO.HHCL 11:43
PROVIDERS: Visit Provider Nurse Practitioner Family
DX: Z00.00 Encounter for general adult medical examination without abnormal findings (principal); Z11.59 Encounter for screening for other viral diseases; Z12.5 Encounter for screening for malignant neoplasm of prostate
CPT/HCPCS: 36415; 80053; 80061; 83036; 84153; 85025; 86704; 86706; 87340; 87389; 87522

== ENCOUNTER 2024-09-04 15:01 | Outpatient (REF) | payer MEDICAID, SELFPAY ==
--- OUTSIDE RECORDS SUMMARY | 2024-09-04 15:04 | XMS_ITS | Encounter Summary ---
Author Organization [employer] Address [address] [facility] [address] [place] [address] Care Team Providers Care Mortuary Technician Name Role Phone Naya Allred CLINICAL NURSE OCCUPATIONAL MEDICINE Primary Care Provider [phone] Reason for Visit * Reason Comments Med Refill Encounter Details Date Type Department Care Team ([facility] st Contact Info) Description 08/13/2024 Refill [facility] [address] [place] [address] Dean Escudero MD [address] [place] [address] Moderate major depression (CMS/HCC) Social History Tobacco Use Types Packs/Day Years Used Date Smoking Tobacco: Former Cigarettes Passive Smoke Exposure: Past Smokeless Tobacco: Never Comments:Smoked over 30 year [...] documented as of this encounter Care Teams Mortuary Technician Relationship Specialty Start Date End Date Naya Allred FNP [address] [place] [phone] PCP - General Family Medicine 03/07/24 documented as of this encounter
[2024-09-04 16:07] LABS: Appearance Urine Turbid; Color Urine Yellow; Glucose Urine UA Negative (Negative); Leukocyte Esterase Urine Negative (Negative); Nitrite Urine Negative (Negative); Specific Gravity - Urine >= 1.030 (1.005-1.025); UMIC TRIGGER UA YES; Urine Blood Negative (Negative); Urine Ketones Trace mg/dL (Negative); Urine Protein 30 (1+) mg/dL (Neg-Trace)
[2024-09-04 16:40] LABS: Bacteria Urine None Seen (None Seen); Hyaline Casts Urine 0-2 /LPF (0-2); RBC Urine 0-2 /HPF (0-2); Squamous Epithelial Cell Urine 0-2 /HPF (0-2); WBC Urine 0-5 /HPF (0-5)
== END 2024-09-04 15:02 | disposition home or self-care (01) ==
LOC: HO.HHCL 15:01
PROVIDERS: Visit Provider Nurse Practitioner Family
DX: R35.1 Nocturia (principal)
CPT/HCPCS: 81001

== ENCOUNTER 2024-12-17 14:06 | Outpatient (REF) | payer MEDICAID, SELFPAY ==
[2024-12-17 16:25] LABS: Estimated Glomerular Filt Rate > 60
--- OUTSIDE RECORDS SUMMARY | 2024-12-17 16:28 | XMS_ITS | Encounter Summary ---
Author Organization [employer] Address [address] [facility] [address] [place] [address] Care Team Providers Care Pet Care Associate Name Role Phone Naya Allred ACUPUNCTURIST Primary Care Provider [phone] Reason for Visit * Reason Comments Med Refill Encounter Details Date Type Department Care Team ([facility] st Contact Info) Description 08/13/2024 Refill [facility] [address] [place] [address] Dean Escudero MD [address] [place] [address] Moderate major depression (CMS/HCC) Social History Tobacco [...] as of this encounter Plan of Treatment Upcoming Encounters Date Type Department Care Team (Late st Contact Info) Description 01/07/2025 9:30 AM EDT Office Visit [facility] [address] [place] [address] Naya Allred FNP [address] [place] [phone] documented as of this encounter Visit Diagnoses Diagnosis Moderate major depression (CMS/HCC) Major depressive disorder, single episode, moderate documented in this encounter Additional Health Concerns Assessment Noted Time PHQ-9 Depression Total Score: 14 024 3:47 PM EST documented as of this encounter Care Teams Pet Care Associate Relationship Specialty Start Date End Date Naya Allred FNP [address] [place] [address] PCP - General Family Medicine 03/07/24 documented as of this encounter
--- OUTSIDE RECORDS SUMMARY | 2024-12-17 16:28 | XMS_ITS | Clinical Summary ---
Author Organization [employer] Address [address] [facility] 7t [place] [address] Care Team Providers Care Network Engineer Name Role Phone Naya Allred RIGHT OF WAY WORKER Primary Care Provider [phone] Allergies No known active allergies Medications * This document contains information received from the source organization and may not represent a complete record from that organization. Multiple Vitamin (multivitamin) tabletIndication s:Moderate major depression (CMS/HCC) Take 1 tablet by mouth Once per day. 90 tablet 3 4 Active acetaminophen (Tylenol Extra Strength) 500 MG tablet Take 1000 mg as needed for mild to moderate pain as needed every 8 hrs 30 tablet 5 Active Blood Pressure kit 1 Units 2 times daily. 1 kit 5 Active tamsulosin (Flomax) 0.4 MG 24 hr capsuleIndicatio ns:Frequent noctunal urination TAKE 1 CAPSULE BY MOUTH EVERY DAY 90 capsule 5 Active gabapentin (Neurontin) 300 MG capsuleIndicatio ns:Moderate major depression (CMS/HCC) Take 1 capsule (300 mg) by mouth in the morning. 30 capsule 1 5 01/14/20 25 Active FLUoxetine (PROzac) 20 MG capsuleIndicatio ns:Moderate major depression (CMS/HCC) Take 2 capsules (40 mg) by mouth in the morning. 60 capsule 2 5 02/13/20 25 Active Tirzepatide-Weig ht Management (Zepbound) 2.5 MG/0.5ML solution auto-injectorInd ications:Class 2 obesity due to excess calories with body mass index (BMI) of 36.0 to 36.9 in adult, unspecified whether serious comorbidity present Inject 0.5 mL (2.5 mg) under the skin 1 (one) time per week for 4 doses. 2 mL 5 12/11/19 25 Active Problems Problem Noted Date Diagnosed Date Preventative health care 11/18/2024 Prediabetes 08/24/2024 Elevated LDL cholesterol level 08/18/2024 Elevated blood pressure read ing in office without diagnosis of hypertension 06/06/2024 Frequent noctunal urination 06/06/2024 Class 2 obesity due to exces s calories with body mass index (BMI) of 36.0 to 36.9 in adult 06/06/2024 Anxiety 06/06/2024 Tremor 06/06/2024 Moderate major depression 03/10/2024 Assessment & Plan (03/10/2024 1:11 PM EST): Patient recently moved from [place], reports Hx of psychiatric hospitalization and SI in 2009 and 2011 in [place] followed at [facility]. PCP Dr. La [facility]. History of heroin dependence, clean for 3 [...] able to communicate needs. Recently moved from [place], [place] to [place]. Past medical hx hep C, drug dependence, [...] organization. Date Type Department Care Team Description 12/17/2024 Patient Outreach [facility] [address] [place] [phone] Lew Ag [facility] 12/17/[address] [address] Naya Allred FNP Lab Orders; Appointment 12/11/2024 Patient Outreach [facility] [address] [place] [address] Toribio Alejandro [facility] 12/07/2024 Patient Outreach [facility] [address] [place] [address] Lew Ag [facility] 12/04/2024 Patient Outreach [facility] [address] [place] [address] Toribio Alejandro [facility] 12/03/2024 Patient Outreach [facility] [address] [place] [address] Lew Ag [facility] 11/29/2024 Patient Outreach [facility] [place] [address] Toribio Alejandro [facility] 11/28/2024 Telephone [facility] [address] [place] [phone] Naya Allred FNP telephone call; Prior Authorization 11/27/2024 Patient Outreach [facility] [address] [place] [address] Karthik Stroud [facility] 11/26/2024 Patient Outreach [facility] [address] [place] [address] Lew Ag [facility] 11/22/2024 Patient Outreach [facility] [address] [place] [address] Toribio Alejandro [facility] 11/21/2024 9:00 AM EDT Office Visit [facility] [address] [place] [address] Dean Escudero MD Substance use disorder (Primary Dx) 11/21/2024 Travel 11/20/2024 Patient Outreach [facility] [address] [place] [address] Karthik Stroud [facility] 2024 Telephone [facility] [place] [address] Naya Allred FNP 11/15/2024 Patient Outreach [address] [address] Toribio Alejandro [facility] 11/14/2024 11:00 AM EDT Office Visit [facility] [place] [address] Naya Allred FNP Class 2 obesity due to excess calories with body mass index (BMI) of 36.0 to 36.9 in adult, unspecified whether serious comorbidity present (Primary Dx); Prediabetes; Moderate major depression ([facility]); Preventative health care 11/14/2024 10:00 AM EDT Office Visit [facility] [place] [address] Dean Escudero MD Substance use disorder (Primary Dx) 11/14/2024 Travel 11/13/2024 Patient Outreach [facility] [place] [address] Karthik Stroud [facility] 11/12/2024 Patient Outreach [facility] [address] [place] [address] Karthik Stroud [facility] 11/09/2024 Patient Outreach [address] [address] Karthik Stroud [facility] 11/09/2024 Refill [facility] [address] [facility] [place] [address] Naya Allred FNP Frequent noctunal urination 11/08/2024 Patient Outreach [facility] [address] [place] [address] Toribio Alejandro [facility] 11/07/2024 9:00 AM EDT Office Visit [facility] [address] [place] [address] Dean Escudero MD Substance use disorder (Primary Dx) 11/07/2024 Travel 11/06/2024 Patient Outreach [facility] [address] [place] [address] Karthik Stroud [facility] 11/02/2024 Patient Outreach [facility] [address] [place] [address] Karthik Stroud [facility] 10/31/2024 9:00 AM EDT Office Visit [facility] [address] [place] [address] Dean Escudero MD Substance use disorder (Primary Dx) 10/31/2024 Travel 10/30/2024 Patient Outreach [facility] [address] [place] [address] Karthik Stroud [facility] 10/29/2024 Patient Outreach [facility] [address] [place] [address] Lew Ag [facility] 10/25/2024 Patient Outreach [facility] [address] [place] [address] Toribio Alejandro [facility] 10/16/2024 Patient Outreach [facility] [address] [place] [address] Karthik Stroud [facility] 10/15/2024 Telephone [facility] [address] [place] [address] Naya Allred FNP Peg Recall 10/10/2024 Telephone [facility] [address] [place] [address] Naya Allred FNP Referral 10/09/2024 Patient Outreach [facility] [address] [place] [address] Omar Bey [facility] 10/08/2024 Patient Outreach [facility] [address] [place] [address] Lew Ag [facility] 10/04/2024 Patient Outreach [facility] [address] [place] [address] Lew Ag [facility] 10/01/2024 Patient Outreach [facility] [address] [place] [address] Lew Ag [facility] 09/17/2024 Patient Outreach [facility] [address] [place] [address] Omar Bey [facility] from Last 3 Months Immunizations Immunization Administration Dates Next Due Influenza, seasonal, injectable, preservative fr ee 01/12/2024 Pneumococcal Conjugate PCV 20 11/14/2024 Tdap 04/23/2024 Zoster, Recombinant 04/23/2024,12/21/2023 Family History Medical History Relation Name Comments Diabetes Father Diabetes Mother Relation Name Status Comments Father Mother Social History Tobacco Use Types Packs/Day Years Used Date Smoking Tobacco: Former Cigarettes Passive Smoke Exposure: Past Smokeless Tobacco: Never Tobacco Cessation:Counseling Given: Not Answered Comments:Smoked over 30 years quit 4 months ago Alcohol Use Standard [...] Sign Reading Time Taken Comments Blood Pressure 128/80 11/14/2024 10:56 AM EDT Pulse 92 11/14/2024 10:56 AM EDT Temperature 36.7 C (98 F) 08/10/2024 3:09 PM EDT Respiratory Rate 16 11/14/2024 10:56 AM EDT Oxygen Saturation 95% 08/10/2024 3:09 PM EDT Inhaled Oxygen Concentration - - Weight 102 kg (225 lb) 11/14/2024 10:56 AM EDT Height 172.7 cm (5' 8 ) 11/14/2024 10:56 AM EDT Body Mass Index 34.21 11/14/2024 10:56 AM EDT Plan of Treatment Upcoming Encounters Date Type Department Care Team (Late st Contact Info) Description 01/07/2025 9:30 AM EDT Office Visit [facility] [address] [place] [address] Naya Allred FNP [address] [place] [address] Health Maintenance Due Date Last Done Comments CT Colonography 1967 Colonoscopy 1967 Colorectal Cancer Screening 1967 FIT DNA/Cologuard 1967 FIT 1967 FOBT 1967 Sigmoidoscopy 1967 Hepatitis B Vaccines (1 of 3 - 19+ 3-dose series) 11/18/1986 Depression Monitoring 09/04/2024 03/07/2024 , 03/07/2024 Influenza Vaccine (#1) 2024 01/12/2024 SDOH Screening 01/29/2025 01/30/2024 Alcohol/Substance Use Screening 06/06/2025 06/06/2024 Diabetes: Hemoglobin A1C 06/06/2025 06/06/2024 Disability Screening 08/10/2025 08/10/2024 Tobacco Screening 11/14/2025 11/14/2024 Lipid Panel 06/06/2029 06/06/2024 DTaP/Tdap/Td Vaccines (2 - T d or Tdap) 04/23/2034 04/23/2024 RSV Patients and Patients Aged 60 years or older (1 - 1-dose 75+ series) 11/18/2042 COVID-19 Vaccine Completed 01/12/2024 Zoster Vaccines Completed 04/23/2024, 12/21/2023 HIV Screening Completed 06/06/2024 Hepatitis C Screening Completed 06/06/2024 Pneumococcal Vaccine: 50+ Years Completed 11/14/2024 HIB Vaccines Aged Out No longer eligi [...] patient's age to complete this topic Meningococcal B Vaccine Aged Out No l onger eligible based on patient's age to complete [...] Procedure Name Priority Date/Time Associated Diagnosis Comments CREATININE, SERUM Routine 12/17/2024 2:1 8 PM EDT Proteinuria, unspecified type POCT GLUCOSE Routine 11/14/2024 10:57 AM EDT Prediabetes HEPATITIS C VIRAL RNA, QUANTITATIVE, REAL-TIME PCR Routine 06/06/2024 11:45 AM EST Adult wellness visit HIV 1/2 ANTIGEN/ANTIBODY, FOURTH GENERATION W/RFL Routine 06/06/2024 11:45 AM EST Adult wellness visit HEMOGLOBIN A1C Routine 06/06/2024 11:45 AM EST Healthcare maintenance LIPID PANEL, STANDARD Routine 06/06/2024 11:45 AM EST Adult wellness visit from Last 3 Months or Most Recently Relevant to Health Maintenance Results * Creatinine, Serum (12/17/2024 2:18 PM EDT) Pathologist [facility] Creatinine, Serum 0.99 0.5 - 1.4 mg/dL [facility] Estimated Glomerular Filt Rate >60 [facility] Comment:Chronic Kidney Disea se: Estimated GFR < 60 mL/min/1.72m8Adtttt Kidney Disease: Estimated GFR < 15 mL/min/1.73m2 Blood Venous blood specimen / Unknown 12/17/2024 2:18 PM EDT 12/17/2024 4:02 PM EDT Naya Nuvola Systemsmirna RIGHT OF WAY WORKER LAB BLOOD ORDERABLES Final Res ult [facility] [address] [place] [phone] * POCT Glucose (11/14/2024 10:57 AM EDT) [facility] Glucose Blood, POC 117 60 - 200 mg/dL QC Media Lot # [id number] Lot# Expiration Date Blood Capillary blood specimen / Unknown 11/14/2024 10:57 AM EDT [employer] POINT OF CARE TEST ENTER/EDIT ORDERABLES Final Result * Hepatitis C Viral RNA, Quantitative, Real-Time PCR (06/06/2024 11:45 AM EST) [facility] Hepatitis C Viral Load <15 NOT DETECTED NOT DETECTED IU/mL [facility] HCV Log PCR <1.18 NOT DETECTED NOT DETECTED Log IU/mL [facility] Comment:For additional infor daysi, please refer tohttp://education.Getfugu/faq/LNY80i6(This link is being provided for informational/educational purposes only.)THIS TEST WAS PERFORMED AT:[employer] [place] [id number] CHRSITOPHER MD Blood Venous blood specimen / Unknown 06/06/2024 11:45 AM EST 06/06/2024 1:34 PM EST Naya Banki[employer]ru [facility] LAB BLOOD ORDERABLES Final Res ult Performing Organization Address City/[facility]/ZIP Co de Phone Number [facility] [address] [place] [phone] [phone] * HIV-1/2 Antigen and Antibodies, Fourth Generation, with Reflexes (06/06/2024 11:45 AM EST) Pathologist [facility] HIV AB/AG Nonreactive Nonreactive [facility] Comment:HIV-1 p24 Ag and/or HIV-1/HIV-2 Ab not detected.A test result that is nonreactive does not exclude thepossibility of exposure to or infection with HIV-1 and/orHIV-2. Nonreactive results in this assay for individualswith prior exposure to HIV-1 and/or HIV-2 may be due toantigen and antibody levels that are below the limit ofdetection of this assay.The [place] HIV Ag/Ab Combo assay result andsupplemental assay results should be interpreted inconjunction with the patient's clinical presentation,history and other laboratory results. If the results areinconsistent with clinical evidence, additional testing issuggested to confirm the result. Blood Venous blood specimen / Unknown 06/06/2024 11:45 AM EST 06/06/2024 1:38 PM EST us Naya [employer] [facility] LAB BLOOD ORDERABLES Final Res ult Performing Organization Address City/[facility]/ZIP Co de Phone Number [facility] [address] [place] [phone] * (ABNORMAL) Hemoglobin A1c (06/06/2024 11:45 AM EST) Hemoglobin A1c 6.1(H) <6.0 % [facility] Comment:Hemoglobin A1C Refer ence Range Adults: 4.8 - 6.0 % Non diabetic: < 6.0 % Goal: < 7.0 %Additional Action Suggested: > 8.0 %Note: Hemoglobin A1c results are invalid for patients with abnormal amounts of HbF. Blood transfusions may impact the HbA1c concentration in the patient sample. Estimated Average Glucose 128 mg/dL [facility] Comment:eAG = Estimated ave rage glucose which is %A1C expressed asaverage glucose, using the formula of the J5H-EggjzmiCtldhgo Glucose study (ADAG), Diabetes Care, Vol.31,#8,2007 Blood Venous blood specimen / Unknown 06/06/2024 11:45 AM EST 06/06/2024 1:34 PM EST us Naya Allred [facility] LAB BLOOD ORDERABLES Final Res ult Performing Organization Address [facility] Co de Phone Number [facility] [address] [place] [phone] * (ABNORMAL) Lipid Panel, Standard (06/06/2024 11:45 AM EST) Triglycerides 104 <150 mg/dL [facility] Comment:Desirable Triglyceri de: less than 150 mg/dLBorderline High Triglyceride 150-199 mg/dLHigh Triglyceride: 200-499 mg/dLVery High Triglyceride: greater than or equal to 5OO mg/dL Cholesterol 161 <200 mg/dL [facility] Comment:Desirable Cholestero l: less than 200 mg/dLBorderline High Cholesterol: 200-239 mg/dLHigh Cholesterol: greater than 239 mg/dL LDL Cholesterol Calculated 107(H) <100 mg/dL [facility] Comment:Desirable LDL: less than 100 mg/dLNear Optimal/Above Optimal LDL: 110- 129 mg/dLBorderline High LDL: 130-159 mg/dLHigh LDL: 160-189 mg/dLVery High LDL: greater than or equal to 190 mg/dL HDL Cholesterol 34(L) >40 mg/dL [facility] Comment:Desirable HDL: great er than 40 mg/dL Note: This HDL assay may give artificially low results in patients with liver disease. Blood Venous blood specimen / Unknown 06/06/2024 11:45 AM EST 06/06/2024 1:34 PM EST us Naya NO LAB BLOOD ORDERABLES Final Res ult [facility] [address] [place] [phone] from Last 3 Months or Most Recently Relevant to Health Maintenance [facility] [employer] Care Teams Network Engineer Relationship Specialty Start Date End Date Naya Allred FNP [address] [place] [phone] PCP - General Family Medicine 03/07/24
--- OUTSIDE RECORDS SUMMARY | 2024-12-17 16:28 | XMS_ITS | Encounter Summary ---
Author Organization [employer] Address [address] [facility] 7t [place] [address] Care Team Providers Care Frame Catcher Name Role Phone Naya Allred Primary Care Provider [phone] Reason for Visit * Reason Onset Date Comments Lab Orders 12/17/2024 Appointment 12/17/2024 Encounter Details Date Type Department Care Team ([facility] st Contact Info) Description 12/17/2024 Telephone [facility] [address] [place] [address] Naya Allred FNP [address] [place] [address] Lab Orders; Appointment Social History Tobacco Use Types Packs/Day Years [...] 9:28 AM EDT Sexual Orientation Straight 10/28/2023 9 :28 AM EDT documented as of this encounter Miscellaneous Notes * Addendum Note - Sandy Botello RN - 12/17/2024 1:13 PM EDTAddended by: SANDY BOTELLO on: 12/17/2024 01:13 PM Modules accepted: Orders * Telephone Encounter - Sandy Botello RN - 12/17/2024 1:06 PM EDT TC placed to pt to schedule physical exam with PCP and advise TSPOT order placed for pt to go to lab at their convenience. Pt cannot recall when their last PE was. Pt booked for PE with PCP on 01/07/25 at 9:30 AM. Pt advised lab order for TB placed and pt to go to lab at their convenience. Pt verbalized understanding and denies questions at this time. * Telephone Encounter - Ana Robles - 12/17/2024 12:03 PM EDT Patient is requesting an appointment for a physical and a order for a T-spot in order to start a program. Please call as soon as possible to discuss further. documented in this encounter Plan of Treatment Upcoming Encounters Date Type Department Care Team (Late st Contact Info) Description 01/07/2025 9:30 AM EDT Office Visit [facility] [address] [place] [address] Naya Allred FNP [address] [place] [address] Scheduled Orders Name Type Priority Associated Diagnoses Orde r Schedule T-SPOT .TB Lab Routine Screening-pulmonary TB Expected: 12/17/2024 (Approximate), Expires: 12/17/2025 documented as of this encounter Visit Diagnoses Diagnosis Screening-pulmonary TB- Primary Screening examination for pulmonary tuberculosis documented in this encounter Additional Health Concerns Assessment Noted Time PHQ-9 Depression Total Score: 14 024 3:47 PM EST documented as of this encounter Care Teams Frame Catcher Relationship Specialty Start Date End Date Naya Allred FNP [address] [place] [address] PCP - General Family Medicine 03/07/24 documented as of this encounter
--- OUTSIDE RECORDS SUMMARY | 2024-12-17 16:28 | XMS_ITS | Clinical Summary ---
Author Organization [facility] Address [address] [place] [address] Care Team Providers Care Invas Tech Name Role Phone Unavailable Primary Care Provider Unavailabl e Source Comments PLEASE NOTE, if this patient is a minor, it may be UNLAWFUL to discuss sensitive information that is contained in these records (such as FAMILY PLANNING, MENTAL HEALTH or SUBSTANCE ABUSE) with the minor patient's parent or other person without the patient's specific authorization.[facility] Social History Tobacco Use Types Packs/Day Years Used Date Smoking Tobacco: Never Assessed Sex and Gender Information Value Date Recorded Sex Assigned at Male 10/11/2024 5:22 AM PDT Legal Sex Male 5:22 AM PDT Gender Identity Male 10/11/2024 5:22 AM PDT Sexual Orientation Not on file Plan of Treatment Upcoming Encounters Date Type Department Care Team (Late st Contact Info) Description 01/03/2025 3:00 PM EDT Behavioral Health Visit [facility] [address] [place] [phone] Abbi Pittman APRN [address] [place] [address] Health Maintenance Due Date Last Done Comments Anxiety Screening 1967 Hepatitis C Screening 1967 Tobacco Screening 1967 Hypertension Screening (#1) 11/18/1985 Imm-Hepatitis B (1 of 3 - 19 + 3-dose series) 11/18/1986 CT Colonography 11/18/2012 Colonoscopy 11/18/2012 Colorectal Cancer Screening 11/18/2012 FIT/gFOBT 11/18/2012 Fecal DNA 11/18/2012 Flexible Sigmoidoscopy 11/18/2012 Imm-Pneumococcal 50+ (1 of 1 - PCV) 11/18/2017 Alcohol and Drug Screen 04/11/2024 Depression Annual Screen 04/11/2024 Imm-Influenza (#1) 2024 01/12/2024 Diabetes Screening 06/06/2027 06/06/2024, 06/06/2024 Lipid Screening 06/06/2029 06/06/2024 Imm-DTaP/Tdap/Td (2 - Td or Tdap) 04/23/2034 025 [id number] Completed 01/12/2024 Imm-Zoster, Recombinant Completed 04/23/2024, 12/20 HIV Screening Completed 06/06/2024, 06/06/2024 Insurance [facility] [place] [phone]
--- OUTSIDE RECORDS SUMMARY | 2024-12-17 16:28 | XMS_ITS | Encounter Summary ---
Author Organization [employer] Address [address] [facility] 7t [place] [address] Care Team Providers Care Numerical Control Lathe Operator Name Role Phone Naya Allred BLANKBOOK STITCHING MACHINE OPERATOR Primary Care Provider [phone] Reason for Visit * Reason Comments [facility] Encounter Details Date Type Department Care Team ([facility] st Contact Info) Description 12/17/2024 Patient Outreach [facility] [address] [place] [address] Lew Ag Recovery Supports Social History Tobacco Use Types Packs/Day Years [...] t he electric, gas, oil or water Right Skills threatened to shut off services in your [...] AM EDT documented as of this encounter Progress Notes * Lew Ag - 12/17/2024 3:12 PM EDT I met with Edilberto today. Setting: in person at [facility] Recovery Wellness Goals worked on: Physical Health/Mental Health Social Stability Spiritual Wellness Action taken/next steps: Attended recovery support group Contingency management Additional comments: Lew Ag documented in this encounter Plan of Treatment Upcoming Encounters Date Type Department Care Team (Late st Contact Info) Description 01/07/2025 9:30 AM EDT Office Visit [facility] [address] [place] [address] Naya Allred FNP [address] [place] [phone] documented as of this encounter Visit Diagnoses Not on filedocumented in this encounter Additional Health Concerns Assessment Noted Time PHQ-9 Depression Total Score: 14 03/07/2 024 3:47 PM EST documented as of this encounter Care Teams Numerical Control Lathe Operator Relationship Specialty Start Date End Date Naya Allred FNP [address] [place] [address] PCP - General Family Medicine 03/07/24 documented as of this encounter
[2024-12-20 09:04] LABS: TS Negative Control Passed; TS Panel A 0; TS Panel B 0; TS Positive Control Passed; TSpotTB Negative (Negative)
== END 2024-12-17 14:07 | disposition home or self-care (01) ==
LOC: HO.HHCL 14:06
PROVIDERS: PCP Nurse Practitioner Family; Visit Provider Nurse Practitioner Family
DX: Z11.1 Encounter for screening for respiratory tuberculosis (principal); R80.9 Proteinuria, unspecified
CPT/HCPCS: 36415; 82565; 86481